=== PATIENT | male | born 1935 | race Caucasian/White ===

== ENCOUNTER → 2016-11-20 | Outpatient (CLI) | payer BC ==
[~2016-11-20] MED LIST: ALBU2.5V3 NEB; ASPI325T32 PO; ASPI325T4 PO; BUDE6HFA INHALATION; DIAZ-90 PO; FINA5TAB4 PO; HYDR-906 PO; PANT40TA4 PO; PRA20 PO; TIOT18CA INHALATION; TRAM50TA2 PO
== END | disposition home or self-care (01) ==
LOC: HKI 09:21
PROVIDERS: ATTEND Orthopaedic Surgery
DX: Z01.818 Encounter for other preprocedural examination (principal); M16.12 Unilateral primary osteoarthritis, left hip; E78.5 Hyperlipidemia, unspecified; J44.9 Chronic obstructive pulmonary disease, unspecified
CPT/HCPCS: 87081; G0463

== ENCOUNTER 2016-12-01 05:35 | Inpatient (IN) | payer BC ==
[2016-11-30 11:41] VITALS: BMI 23.6
[~2016-12-01] VITALS: Ht 172.7 cm; Wt 72.5 kg
[2016-12-01] VITALS (21 sets, daily range): BP systolic 73–124; BP diastolic 42–89; PULSE 62–90; RESP 10–19; Ht 172.7 cm; Wt 72.5 kg
[2016-12-01] MEDS ORDERED: PREGABALIN 100 MG CAP ONE (06:07)
[2016-12-01] MEDS ORDERED: PRA20 PO (06:54)
[2016-12-01] MEDS ORDERED: SODIUM CL BACTERIOSTATIC 30 ML INJ ONE (06:54)
[2016-12-01] MEDS ORDERED: DIAZ-90 PO (06:54)
[2016-12-01] MEDS ORDERED: ASPI325T4 PO (06:54)
[2016-12-01] MEDS ORDERED: VANCOMYCIN 1 GM INJ ONE (06:54)
[2016-12-01] MEDS ORDERED: ALBU2.5V3 NEB (06:54)
[2016-12-01] MEDS ORDERED: TIOT18CA INHALATION (06:54)
[2016-12-01] MEDS ORDERED: FINA5TAB4 PO (06:54)
[2016-12-01] MEDS ORDERED: BUDE6HFA INHALATION (06:54)
[2016-12-01] MEDS ORDERED: POLYMYXIN B 500000 UNIT INJ ONE (06:54)
[2016-12-01] MEDS ORDERED: PAIN COCKTAIL-CEFUROXIME IRR SCH ×7 (07:00)
[2016-12-01] MEDS ORDERED: TRANEXAMIC ACID IV ONE (07:00)
[2016-12-01] MEDS ORDERED: CEFAZOLIN 2GM/50 ML (PMX) 50 ML X1 BEFORE INCISION IVPB ONE (07:00)
[2016-12-01] MEDS: LACTATED RINGER'S 1,000 ML IV SCH ×4 (07:00→18:40)
[2016-12-01] MEDS ORDERED: SOD CHLORIDE 0.9% IV ONE (07:00)
[2016-12-01] MEDS ORDERED: traMADOL 50 MG TAB X 1 DOSE PO ONE (07:00)
[2016-12-01] MEDS ORDERED: oxyCODONE (CR) 10 MG TAB [oxyCONTIN] X1 DOSE PO ONE (07:00)
[2016-12-01] MEDS ORDERED: EXPAREL NOTE (BUPIVICAINE LIPOSOMAL) XX SCH (07:00)
[2016-12-01] MEDS ORDERED: CELECOXIB 400 MG PO X1 DOSE PO ONE (07:00)
[2016-12-01] MEDS ORDERED: NEOSTIGMINE 3 MG/3 ML SYRINGE ONE (07:05)
[2016-12-01] MEDS ORDERED: GLYCOPYRROLATE 1 MG INJ ONE (07:05)
[2016-12-01] MEDS ORDERED: ROCURONIUM 50 MG INJ ONE (07:05)
[2016-12-01] MEDS ORDERED: PROPOFOL 100 ML ONE (07:05)
[2016-12-01] MEDS ORDERED: CEFAZOLIN 1 GM INJ ONE (07:05)
[2016-12-01] MEDS ORDERED: ETOMIDATE 20 MG INJ ONE (07:05)
[2016-12-01] MEDS ORDERED: LIDOCAINE 100 MG SYRINGE ONE (07:05)
[2016-12-01] MEDS ORDERED: ONDANSETRON 4 MG INJ ONE (07:06)
[2016-12-01] MEDS ORDERED: DEXAMETHASONE 4 MG/ML 1 ML INJ ONE (07:06)
[2016-12-01] MEDS ORDERED: FENTAnyl 50 MCG/ML VIAL ONE (07:06)
[2016-12-01] MEDS ORDERED: MIDAZOLAM 1 MG/ML 2 ML INJ ONE (07:06)
--- NOTE | 2016-12-01 07:23 | HPN ---
Date/Time of Note Date/Time of Note DATE: 12/01/16 TIME: 07:22 Interval H&P Admission Note Pt. seen H&P reviewed: No system changes No change from H&P on 11/27/16 from LISA Lester MD Dec 01, 2016 07:22
[2016-12-01] MEDS ORDERED: TRANEXAMIC ACID IVPB SCH (08:00)
[2016-12-01] MEDS ORDERED: SOD CHLORIDE 0.9% IVPB SCH (08:00)
[2016-12-01] MEDS ORDERED: MIDAZOLAM 1 MG/ML 2 ML INJ IV PRN (08:30)
[2016-12-01] MEDS ORDERED: MEPERIDINE 25 MG INJ IV PRN (08:30)
[2016-12-01] MEDS ORDERED: LABETALOL HCL 20MG INJ IV PRN (08:30)
[2016-12-01] MEDS ORDERED: HYDROmorphONE (0.2 MG/ML) 10ML SYG IV PRN ×3 (08:30)
[2016-12-01] MEDS ORDERED: ONDANSETRON 4 MG INJ IV PRN ×2 (08:30→13:00)
[2016-12-01] MEDS ORDERED: EPHEDrine SULFATE 50 MG/5 ML SYG IV PRN (08:30)
[2016-12-01] MEDS ORDERED: DIPHENHYDRAMINE 50 MG INJ IV PRN (08:30)
[2016-12-01] MEDS ORDERED: TRIMETHOBENZAMIDE 100 MG/ML VIAL IM PRN (08:30)
[2016-12-01] MEDS ORDERED: FENTAnyl 50 MCG/ML VIAL IV PRN ×3 (08:30)
[2016-12-01] MEDS ORDERED: hydrALAzine 20 MG INJ IV PRN (08:30)
[2016-12-01] MEDS ORDERED: BACITRACIN 50000 UNITS INJ IRR ONE (08:40)
[2016-12-01] MEDS ORDERED: ALBUMIN HUMAN 5% 250 ML ONE (09:22)
[2016-12-01] MEDS ORDERED: NA PHOSPHATE/BIPHOS 133 ML ENEMA PR PRN (10:30)
[2016-12-01] MEDS ORDERED: NACL 0.9% 3 ML SYG IV SCH (10:30)
[2016-12-01] MEDS ORDERED: BISACODYL 10 MG SUPP PR PRN (10:30)
[2016-12-01] MEDS ORDERED: MAGNESIUM HYDROXIDE 30ML CUP PO PRN (10:30)
[2016-12-01] MEDS ORDERED: ASPIRIN (EC) 325 MG TAB PO ONE (10:30)
[2016-12-01] MEDS ORDERED: ALBUTEROL 0.083% (NEB) 2.5 MG/3 ML AMP NEB PRN (10:30)
--- NOTE | 2016-12-01 10:47 | OPPN ---
Date/Time of Note Date/Time of Note DATE: 12/01/16 TIME: 10:46 Operative/Procedure Note Dictation # [id number] Pre-Operative Diagnosis Left Hip OA Post-Operative Diagnosis Same Procedure Left Anterior NORMAN Surgeon: LISA SAWYER MD Doughnut Machine Operator: DIMAS WELSH PA-C Anesthesiologist: Pasha Roque M.D. Findings Severe OA Blood Usage/Administration None Implants/Grafts Depuy NORMAN Estimated blood loss: 250 - 300 ml's Drains Hemovac x 1 Specimens Femoral Head Complications: None Anesthesia type: spinal LISA SAWYER MD Dec 01, 2016 10:47
--- NOTE | 2016-12-01 10:47 | PN ---
Date/Time of Note Date/Time of Note DATE: 12/01/16 TIME: 10:45 Assessment/Plan Lines/Catheters IV Catheter Type (from Nrsg): Peripheral IV Assessment/Plan Assessment/Plan Stable in PACU s/p left anterior NORMAN -cont abx -pain meds prn -ASA/SCDs for DVT prophylaxis -OOB with PT this afternoon -monitor drain -check AM labs -d/c palmer in AM XR of the left hip is pending at this time Subjective 24 Hr Interval Summary Stable in PACU. Denies significant pain. Moving all extremities. Exam/Review of Systems Vital Signs Vitals Vital Signs Date Time Temp Pulse Resp B/P Pulse Ox O2 Delivery O2 Flow Rate FiO2 12/01/16 10:38 97.8 12/01/16 06:02 86 16 119/89 98 Room Air Exam Free Text/Dictation Dressing dry Incision clean, dry, and intact without redness or drainage Thigh soft 5/5 Quadriceps, Tibialis Anterior, EHL, Gastroc, Soleus, Peroneals Normal sensation Palpable DT/PT, CR <2 sec No distal edema DIMAS WELSH PA-C Dec 01, 2016 10:47
[2016-12-01 11:02] LABS: ADD UMIC YES; URINE BILIRUBIN (Dip) NEGATIVE (NEGATIVE); URINE BLOOD (Dip) TRACE (NEGATIVE); URINE COLOR LT. YELLOW (YELLOW); URINE GLUCOSE (Dip) NEGATIVE (NEGATIVE); URINE KETONES (Dip) 15 (NEGATIVE); URINE LEUKOCYTE ESTERASE (Dip) NEGATIVE (NEGATIVE); URINE NITRITE (Dip) NEGATIVE (NEGATIVE); URINE TOTAL PROTEIN (Dip) NEGATIVE (NEGATIVE); URINE UROBILINOGEN (Dip) 0.2 E.U./dL (0.1-1.0)
[2016-12-01] MEDS: ACETAMINOPHEN 1000MG/100ML IV 100 ML IVPB SCH ×3 (11:06→23:53)
[2016-12-01] MEDS: traMADol 50 MG TAB PO SCH ×2 (11:06→18:14)
[2016-12-01] MEDS: CEFAZOLIN 2 GM/50 ML (PMX) 50 ML IVPB SCH ×2 (11:07→18:40)
[2016-12-01 11:25] LABS: SQUAMOUS EPITHELIAL CELL,UR OCCASIONAL
[2016-12-01 11:28] LABS: HEMATOCRIT 27.5 % (42.0-52.0); HEMOGLOBIN 9.4 g/dl (14.0-18.0)
[2016-12-01 11:31] LABS: POTASSIUM 4.3 mmol/L (3.5-5.1)
[2016-12-01 11:35] LABS: CALCIUM 8.2 mg/dl (8.4-10.2); CREATININE 0.78 mg/dl (0.61-1.24)
--- NOTE | 2016-12-01 11:57 | RADRPT ---
PROCEDURE: Pelvis x-ray CLINICAL INDICATION: Postoperative study for total left hip arthroplasty. TECHNIQUE: Single AP view of the pelvis performed. COMPARISON: AP pelvis for surgical planning to 03/2017. FINDINGS: Interval placement of a total left hip arthroplasty with subcutaneous emphysema noted over the left hip. There are degenerative changes of the lower lumbar spine and lumbosacral junction. Right femu r is anatomically aligned in the right acetabulum. There may be slight narrowing of the joint space . There is a Yañez catheter projecting in the midline of the pelvis. The innominate bone is intact . There is a rounded radiodensity projecting to the left ilium which is likely an artifact or mater ial within the descending colon as it is not seen on the prior study. IMPRESSION: 1. Status post total left hip arthroplasty. The femoral and acetabular components are anatomically aligned with no evidence of loosening. Subcutaneous emphysema and a drainage tube are noted in the area of the left hip for recent surgery. 2. Osteoarthritis of the lower lumbar spine. RPTAT:AAJJ Physician Toro Date Time Electronically viewed and signed by Physician Toro on 12/01/2016 11:57 JM/
[2016-12-01] MEDS: TIOTROPIUM 18 MCG CAPSULE INHA DEV INH SCH (12:00)
--- NOTE | 2016-12-01 12:00 | RADRPT ---
PROCEDURE: XR Left Hip. CLINICAL INDICATION: Left hip replacement. TECHNIQUE: A total of 9 fluoroscopic images are obtained in surgery. COMPARISON: Left hip 11/30/2016. FINDINGS: AP view of the lower pelvis demonstrates flattening and sclerosis of the left femoral head with narr owing of the joint space. The right hip joint may be slightly narrowed. There is a small catheter in the midline of the pelvis. Subsequent images demonstrate placement of the acetabular component of the left hip prosthesis and r emoval of the left femoral head. Subsequent placement of the femoral component of the prosthesis is noted and appears anatomically aligned with the acetabular component. IMPRESSION: 1. Digital radiographs obtained in surgery demonstrating interval placement of a total left hip art hroplasty. The bones appear anatomically aligned on the final radiograph. RPTAT:AAJJ Physician Toro Date Time Electronically viewed and signed by Physician Toro on 12/01/2016 11:59 TIMI/
--- NOTE | 2016-12-01 12:01 | RADRPT ---
PROCEDURE: XR Left Hip. CLINICAL INDICATION: Status post total left hip arthroplasty. TECHNIQUE: AP and frog lateral views of the left hip were performed. COMPARISON: AP view of the lower pelvis 12/01/2016 0932 hours. FINDINGS: Status post placement of a total left hip arthroplasty with the drainage catheter noted lateral to t he left acetabulum. Subcutaneous emphysema is noted related to surgery. IMPRESSION: 1. Status post total left hip arthroplasty with interval placement of a drainage catheter along the lateral side of the left hip. Subcutaneous emphysema related to recent surgery. RPTAT:AAJJ Physician Toro Date Time Electronically viewed and signed by Physician Toro on 12/01/2016 12:00 TIMI/
--- NOTE | 2016-12-01 12:28 | PREOPHP ---
DATE OF ADMISSION: 12/01/2016 Dr. Dilip Hebert dictating for Dr. Esa Addison CHIEF COMPLAINT: The patient is an 81-year-old male scheduled to undergo total left hip replacement with Dr. Addison at [facility] on 12/01/2016. HISTORY OF PRESENT ILLNESS: The patient has a history of progressively increasing worsening hip pain with limitation of range of motion to the point now it is interfering with the quality of his life. He is willing to undergo the procedure. PAST MEDICAL HISTORY: Positive for: 1. COPD. 2. Hypercholesterolemia. 3. BPH. 4. History of degenerative joint disease of the wrist, hands and hips. 5. Status post cataract and intraocular lens implant in 2016. 6. Sinus bradycardia. MEDICATIONS: 1. Albuterol sulfate as needed. 2. Spiriva 18 mcg 1 capsule daily. 3. Symbicort 160/4.5 once daily. 4. Aspirin low dose. 5. Pravastatin 10 mg daily. 6. Finasteride 5 mg daily. 7. Valium 5 mg p.o. at bedtime p.r.n. for insomnia. FAMILY HISTORY: Father of a heart attack in his 40s. Sister undergoing valve surgery in h er 70s. Otherwise, unremarkable. REVIEW OF SYSTEMS: Negative. PAST SURGICAL HISTORY: Chest tube insertion following a fall on the right side in 2003 and a tonsil lectomy as a child. SOCIAL HISTORY: The patient is , has 1 or 2 martinis a day. Was a cigarette smoker of 2 to 3 packs a day for 30 to 40 years, quit in 2013. Occupation: He is an agent. PHYSICAL EXAMINATION: GENERAL: This is a very pleasant elderly white male in no distress. VITAL SIGNS: Blood pressure is 121/73, pulse is 80, respirations 16, temperature is 98.7. Weight is 158, height is 5 feet 6 inches. SKIN: Warm and dry. Normal color and turgor. HEAD AND NECK: Normocephalic, atraumatic. The sclerae is not icteric. The conjunctivae are pink and hydrated. Extraocular muscles are full. The neck is supple. LUNGS: Clear. HEART: S1, S2, regular rate and rhythm without murmur, rub or gallop. ABDOMEN: Soft, nontender, no organomegaly, no masses. EXTREMITIES: There is no clubbing, cyanosis or edema with decreased range of motion at the left hip . NEUROLOGICAL: Alert, oriented, nonfocal exam. LABORATORY: CBC: White count is 9900, hemoglobin is 12.4, hematocrit 37.3. Platelet count is 242,0 00. Glucose 130, BUN 23, creatinine 1.0, sodium 140, potassium 4.4, chloride 98, CO2 is 25, calcium is 9.5, protein is 7.1, albumin is 4.5, bilirubin 0.5, alkaline phos is 67, AST is 22, ALT is 23. Ur inalysis is specific gravity 1.028, pH 5.5, yellow, clear; negative for WBC, protein, glucose, keton es, occult blood, bilirubin, nitrites. PT/INR is 1.0, protime 10.4. PTT is 28, sed rate is 21. EKG shows a normal sinus rhythm. There is some left axis deviation. There are no acute ST-T wave ab normalities noted. Chest x-ray shows calcification of the thoracic aorta with mild hyperinflation, otherwise unremarkable. ASSESSMENT: Degenerative joint disease, left hip. PLAN: There are no contraindications with this patient proceeding with the surgery as scheduled. Jalen conroy needs no further evaluation or workup in my opinion. He understands the inherent dangers in all s urgeries including, but not limited to preoperative, intraoperative, postoperative infection, acute renal failure, myocardial infarction, stroke, respiratory failure requiring prolonged intubation whi ch may lead to other things such as tracheostomy and PEG placement and placement in facility. The p atient wishes to proceed with the surgery as scheduled. Dictated By: ESA KRAUS/NTS Conf#: [id number] DID#: [id number]
--- NOTE | 2016-12-01 12:56 | OPR ---
DATE OF OPERATION: 12/01/2016 PREOPERATIVE DIAGNOSIS: Left hip osteoarthritis. POSTOPERATIVE DIAGNOSIS: Left hip osteoarthritis. OPERATION PERFORMED: Left anterior total hip arthroplasty. SURGEON: Lisa Addsion MD COMPUTER VIDEO GAME DESIGNER: ROSSY Lawson COMPONENTS USED: DePuy size 54 mm Gription Garibaldi cup, 54/36 neutral AltrX polyethylene liner, si ze 8 standard ACTIS stem, 36+ 8.5 ceramic head. ANESTHESIA: Spinal plus general endotracheal intubation plus periarticular injection. ANESTHESIOLOGIST: Dr. Roque. ESTIMATED BLOOD LOSS: 300 mL. INTRAVENOUS FLUIDS: 2500 mL crystalloid. SPECIMENS: Femoral head. DRAINS: Hemovac x1. COMPLICATIONS: None. DISPOSITION: The patient tolerated the procedure well and was taken to the recovery room in stable condition. INDICATIONS: The patient is an 81-year-old gentleman who has had progressive worsening pain in the left hip with radiographic evidence of severe osteoarthritis. He has failed nonsurgical means of tr eatment to control his pain including activity modifications, pain medications and ambulatory assist devices. Despite these measures, he has had worsening pain and I felt he would benefit from a tota l hip arthroplasty through an anterior approach. The risks, benefits, and alternatives of the procedure were explained in detail to the patient. I ex plained the risks of the surgery to include, but not be limited to: bleeding and possible need for b lood transfusion; infection; pain; stiffness; neurovascular injury with possible numbness, weakness, and/or paralysis anywhere from the hip down to the toes; fracture; instability; dislocation; leg le ngth inequality; wear and/or loosening of the prosthesis and possible need for future revision; bloo d clots; pulmonary embolism; and anesthetic complications such as heart attack, stroke, GI bleed, pn eumonia, and/or . Ample time was allowed for the patient to ask questions, all of which were ad dressed and answered. The patient understood the risks involved and wished to proceed. Informed cons ent was signed prior to the procedure. PROCEDURE: The patient's left hip was initialed with a marking pen in the preoperative area to ident jose the correct operative site. The patient was brought to the operating room and transferred from [facility] to the [facility] where a spinal anesthetic was administered. The patient was the n anesthetized and intubated. A Yañez catheter was placed. Both feet were placed into well-padded berry ots, which were then placed into the leg holders of the traction booms. A timeout was performed to c onfirm that the left side was the correct operative site. The patient was given 2 g of intravenous A ncef within one hour prior to the procedure. The operative hip was prepped and draped in the usual s terile fashion. A 10 cm oblique incision was made over the anterior aspect of the hip and carried down through subcu taneous tissue and fat with sharp dissection. The tensor fascia ricardo was incised along the length of the wound. The tensor fascia muscle was retracted laterally and the sartorius medially. The anterio r circumflex vessels were identified and tied off with 2-0 silk suture and coagulated with the Ciashopu e Link gis technician. The rectus femoris was elevated off the anterior capsule and an anterior capsulec delfina performed. A femoral neck osteotomy was made and the head removed from the acetabulum. The acet abulum was denuded of cartilage circumferentially, as was the femoral head. Retractors were placed a round the acetabulum. The remnants of the labrum and ligamentum teres were excised. I reamed the tracy tabulum to the medial wall and then went into an anatomic position and increased the reamer size in 2 mm increments until I got a good bite and was down to bleeding subchondral bone. The Garibaldi cup was opened and impacted into the acetabulum and sat flush circumferentially, gettin g a good bite. C-arm imaging showed it had about 40 to 45 degrees of abduction and 20 degrees of ant eversion. The real liner was opened and impacted into the acetabulum and sat flush circumferentiall y. Attention was turned towards the femur. The operative leg was carefully lowered to the floor with the leg adducted. The foot was then job service consultant ally rotated to approximately 110 degrees. A posteromedial release was performed to optimize exposur e. The femoral hook was placed underneath the proximal femur and the hydraulic lift was then used to elevate the femur up out of the wound. The drain cutter osteotome was used to remove the remaining overhanging greater trochanter. The femur was then broached, going up in one size increments until it sat flush with the neck cut and a stable fit was achieved. The trial neck and head were assembled and reduced into the acetabulum. Fluoroscopic imaging showed the components to be in good position and the leg lengths and offsets to be equal. At this point, the trial was dislocated and the trial broach removed. The canal was irrigated and dr pedroza. The real stem was opened and impacted into the femur. The trunnion was irrigated and dried, and the real femoral head was impacted onto the trunnion, and reduced into the acetabulum. The soft tissues were infiltrated with a mixture of 150 mg of 0.5% Bupivacaine, 8 mg of Duramorph, 3 00 mcg of epinephrine, 30 mg of Toradol, 100 mcg of clonidine, 750 mg of cefuroxime and 86 mL of nor mal saline, followed by an injection of 266 mg of liposomal Bupivacaine. At this point the hip was i rrigated with a mixture of betadine/saline and then antibiotic saline with pulsatile lavage. A Hemov ac drain was placed in the deep portion of the wound and brought out the anterolateral thigh. There was good hemostasis. The tensor fascia ricardo was repaired with a running #1 Vicryl. The deep fat laye r was irrigated and closed with 2-0 Stratafix and the subcutaneous layer closed with 3-0 Stratafix a nd the skin was sealed with Prineo Dermabond. The drain was secured with 3-0 nylon. The sponge and needle counts were correct at the end of the case. The wound was covered with an occl usive dressing. The patient was awakened, extubated, and taken to the recovery room in stable condit ion. Dictated By: LISA KRAUS/REYNALDO Conf#: [id number] DID#: [id number]
[2016-12-01] MEDS ORDERED: HYDROmorphONE 1 MG/ML SYG IV PRN (13:00)
[2016-12-01] MEDS ORDERED: oxyCODONE 5 MG TAB PO PRN (13:00)
[2016-12-01] MEDS ORDERED: DIPHENHYDRAMINE 25 MG CAP PO PRN (13:00)
--- NOTE | 2016-12-01 14:38 | CONS ---
DATE OF ADMISSION: 12/01/2016 DATE OF CONSULTATION: 12/01/2016 REQUESTING PHYSICIAN: Esa Addison MD REASON FOR CONSULTATION: Medical management postoperatively status post left hip surgery. HISTORY OF PRESENT ILLNESS: This is a very pleasant 81-year-old gentleman with past medical history of COPD, insomnia, BPH, and dyslipidemia, whom has been complaining of having left hip pain and had been having difficulty with ambulation. The patient has been having progressively worsening pain i n his left hip with radiographic evidence of severe osteoarthritis. He has failed nonsurgical means of treatment to control pain including activity modification, pain medication, ambulatory assist de vices. Despite the measures, the patient has had worsening of the pain and was seen and evaluated b y orthopedic surgeon and it was felt that patient would benefit from total hip arthroplasty. After discussing the risks and benefits of the surgery, the patient was admitted to [facility] 12/01/2016 for left total hip arthroplasty. After signing consent, the patient was taken to OR and under spinal plus general endotracheal intubation plus periarticular injection, the patient h ad a left anterior total hip arthroplasty with estimated blood loss of 300 mL without any complicati on. The patient was taken to recovery room in stable condition. Medical team was consulted for fur ther evaluation. At this time, the patient is awake, alert, oriented. He denies any chest pain, sh ortness of breath, nausea, vomiting, diarrhea. No headache, dizziness, lightheadedness. No change in visual acuity, diplopia, photophobia. No abdominal pain. No neck pain. No restricted range of motion in his upper extremities. Denies having any discomfort at this time. The other 12 review of systems has been found to be negative. PAST MEDICAL/SURGICAL HISTORY: As above per HPI. Status post right pneumothorax and chest tube teressa cement 12 years ago. MEDICATIONS: 1. Albuterol sulfate. 2. Aspirin. 3. Symbicort. 4. Valium. 5. Finasteride. 6. Pravastatin. 7. Spiriva. ALLERGIES: NO KNOWN DRUG ALLERGIES. FAMILY HISTORY: Noncontributory secondary to advanced age. SOCIAL HISTORY: History of smoking x50 years. He quit 12 years ago. REVIEW OF SYSTEMS: As above per HPI, otherwise 12 review of systems has been found to be negative. PHYSICAL EXAMINATION: VITAL SIGNS: Temperature 97.8, pulse 74, respirations 14, blood pressure 108/54, oxygen 100% in elton m air. GENERAL APPEARANCE: The patient is lying in bed comfortably without any distress. He is awake, lavonne rt, oriented. The patient is able to answer my questions properly. EYES AND ENT: Conjunctivae and lids are normal. Pupils are normal. Extraocular normal. Hearing g rossly normal. Lips and gums are normal. Oral mucosa is moist. NECK: Supple. Trachea is midline. No lymphadenopathy. RESPIRATORY: Effort is normal. Clear to auscultation bilaterally. CARDIOVASCULAR: Normal S1, S2. Regular rhythm and rate. No murmur, no bruits, no edema. Peripher al pulses, radial pulses palpable. Capillary refill is normal. CHEST: Normal expansion of thorax during inspiration. GASTROINTESTINAL: Abdomen is soft, nontender, not distended. Bowel sounds present. No guarding, n o rebound. GENITOURINARY: Deferred. MUSCULOSKELETAL: Upper extremities within normal limits. There is evidence of arthritis of hands, bilateral upper extremities in the digits. The patient is status post left hip arthroplasty. Surgi palmira site is dry and clean. Full range of motion lower extremity. NEUROLOGIC: Cranial nerves II through XII are grossly intact. PSYCHIATRIC: Normal judgment and insight. Alert and oriented x3. Mood and affect is normal. LABORATORY WORK AND IMAGING: Hemoglobin 9.4, hematocrit 27.5. Sodium 139, potassium 4.3, chloride 101, bicarbonate 27, BUN 22, creatinine 0.78, glucose 143, calcium 8.2. Urinalysis: Specific gravi ty greater than 1.030, otherwise negative. ASSESSMENT AND PLAN: 1. Left hip osteoarthritis. The patient is status post left anterior total hip arthroplasty. Cont inue postsurgical care. Aspirin for deep venous thrombosis prophylaxis. Continue pain medication. Physical therapy as per orthopedic surgeon. 2. Chronic obstructive pulmonary disease. Continue Symbicort, albuterol and Spiriva. 3. Dyslipidemia. Continue statin. 4. Benign prostatic hypertrophy. Continue finasteride. 5. We will continue to monitor the patient closely. Further recommendations, management and treatm ent as per clinical course. 6. For deep venous thrombosis prophylaxis, on aspirin as per orthopedic surgeon's recommendation. Total time spent for evaluation of patient and consultation note 35 minutes. Dictated By: MARY ROGERS/NTS Conf#: [id number] [facility]#: [id number]
[2016-12-01] MEDS ORDERED: BACITRACIN 50000 UNITS INJ ONE (14:54)
[2016-12-01] MEDS ORDERED: BUPIVACAINE LIPOSOME/PF 266 MG/20 ML VIAL INFIL SCH (16:00)
[2016-12-01] MEDS ORDERED: PREGABALIN 300 MG PO X1 PO ONE (16:00)
[2016-12-01] MEDS: PANTOPRAZOLE (EC) 40 MG TAB PO SCH (18:14)
[2016-12-01] MEDS: SALMETEROL/FLUTICASONE 250/50 INHA INH SCH (21:00)
[2016-12-01] MEDS: PREGABALIN 25 MG CAP PO SCH (21:00)
[2016-12-01] MEDS: DIAZEPAM 5 MG TAB PO SCH (21:00)
[2016-12-01] MEDS: DOCUSATE SODIUM 100 MG CAP PO SCH (21:28)
[2016-12-01] MEDS: ATORVASTATIN 10 MG TAB PO SCH (21:38)
[2016-12-02] VITALS: BP 90/55; RESP 20
[2016-12-02] MEDS: CEFAZOLIN 2 GM/50 ML (PMX) 50 ML IVPB SCH (01:55)
[2016-12-02] MEDS: LACTATED RINGER'S 1,000 ML IV SCH ×6 (01:55→22:51)
[2016-12-02] MEDS: traMADol 50 MG TAB PO SCH ×5 (02:55→23:33)
[2016-12-02] MEDS: PANTOPRAZOLE (EC) 40 MG TAB PO SCH ×2 (05:01→17:27)
[2016-12-02 05:08] LABS: HEMATOCRIT 25.5 % (42.0-52.0); HEMOGLOBIN 8.8 g/dl (14.0-18.0)
[2016-12-02 05:25] VITALS: BP 116/69; PULSE 67; RESP 18
[2016-12-02 05:29] LABS: POTASSIUM 4.1 mmol/L (3.5-5.1)
[2016-12-02 05:32] LABS: CREATININE 0.76 mg/dl (0.61-1.24)
[2016-12-02 05:33] LABS: CALCIUM 8.4 mg/dl (8.4-10.2)
[2016-12-02] MEDS: ACETAMINOPHEN 1000MG/100ML IV 100 ML IVPB SCH (06:00)
[2016-12-02 07:00] VITALS: BP 116/61; RESP 20
[2016-12-02] MEDS: oxyCODONE 5 MG TAB PO PRN ×3 (07:55→16:47)
--- NOTE | 2016-12-02 08:43 | PN ---
Date/Time of Note Date/Time of Note DATE: 12/02/16 TIME: 08:41 Assessment/Plan Lines/Catheters IV Catheter Type (from Nrsg): Peripheral IV Yañez in Place (from Nrsg): Yes Assessment/Plan Assessment/Plan Stable POD #1 s/p left anterior NORMAN -d/c abx -pain meds -ASA/SCDs -drain removed -OOB with PT -check AM labs -encourage incentive spirometry -d/c planning. Possible d/c home tomorrow Subjective 24 Hr Interval Summary Doing well. No acute overnight events. Denies pain. Did PT yesterday with no adverse events. Denies f/c. VSS, afebrile. Exam/Review of Systems Vital Signs Vitals Vital Signs Date Time Temp Pulse Resp B/P Pulse Ox O2 Delivery O2 Flow Rate FiO2 12/02/16 07:00 97.9 63 20 116/61 99 12/02/16 05:25 Nasal Cannula 2.0 Intake and Output 12/01/16 12/01/16 12/02/16 15:00 23:00 07:00 Intake Total 2660 ml 950 ml 2050 ml Output Total 970 ml 1060 ml 1980 ml Balance 1690 ml -110 ml 70 ml Exam Free Text/Dictation Hemovac: 80cc Dressing dry Incision clean, dry, and intact without redness or drainage 5/5 Quadriceps, Tibialis Anterior, EHL, Gastroc, Soleus, Peroneals Normal sensation Palpable DT/PT, CR <2 sec No distal edema Results Result Diagram: 12/02/1642912/02/16429 DIMAS WELSH PA-C Dec 02, 2016 08:43
[2016-12-02] MEDS: TIOTROPIUM 18 MCG CAPSULE INHA DEV INH SCH (08:50)
[2016-12-02] MEDS: SALMETEROL/FLUTICASONE 250/50 INHA INH SCH ×2 (08:50→20:54)
[2016-12-02] MEDS: ASPIRIN (EC) 325 MG TAB PO SCH ×2 (08:51→20:44)
[2016-12-02] MEDS: PREGABALIN 25 MG CAP PO SCH ×2 (08:51→20:45)
[2016-12-02] MEDS: FINASTERIDE 5 MG TAB PO SCH (08:51)
[2016-12-02] MEDS: CELECOXIB 200 MG CAP PO SCH (08:51)
[2016-12-02] MEDS: DOCUSATE SODIUM 100 MG CAP PO SCH ×2 (08:51→20:45)
--- NOTE | 2016-12-02 10:13 | PN ---
Date/Time of Note Date/Time of Note DATE: 12/02/16 TIME: 10:10 Assessment/Plan VTE Prophylaxis VTE Prophylaxis Intervention: other Lines/Catheters IV Catheter Type (from [facility]): Peripheral IV Urinary Cath still in place: No Assessment/Plan Chief Complaint/Hosp Course ASSESSMENT AND PLAN: 1. Left hip osteoarthritis. The patient is status post left anterior total hip arthroplasty. Continue postsurgical care. Aspirin for deep venous thrombosis prophylaxis. Continue pain medication. Physical therapy as per orthopedic surgeon. 2. Chronic obstructive pulmonary disease. Continue Symbicort, albuterol and Spiriva. 3. Dyslipidemia. Continue statin. 4. Benign prostatic hypertrophy. Continue finasteride. 5. For deep venous thrombosis prophylaxis, on aspirin as per orthopedic surgeon 's recommendation. We will continue to monitor the patient closely. Further recommendations, management and treatment as per clinical course. Problems: Subjective 24 Hr Interval Summary Free Text/Dictation Patient denies any chest pain shortness of breath Denies of any left hip pain Tolerating oral intake No nausea vomiting diarrhea Exam/Review of Systems Vital Signs Vitals Vital Signs Date Time Temp Pulse Resp B/P Pulse Ox O2 Delivery O2 Flow Rate FiO2 12/02/16 07:00 97.9 63 20 116/61 99 12/02/16 05:25 Nasal Cannula 2.0 Intake and Output 12/01/16 12/01/16 12/02/16 15:00 23:00 07:00 Intake Total 2660 ml 950 ml 2050 ml Output Total 970 ml 1060 ml 1980 ml Balance 1690 ml -110 ml 70 ml Exam General: The patient is well-developed, Not in acute distress. HEENT: Atraumatic, normocephalic. The pupils are equal and round . Neck: Supple with full range of motion. Chest: Normal expansion of the thorax during inspiration Lungs: Clear to auscultation bilaterally Heart: Normal S1-S2, Regular rhythm and rate. Abdomen: Soft , nontender, nondistended , bowel sounds are present. Extremities: Left hip surgical site is dry and clean, drain has been removed, no edema no cyanosis Neurologic: Normal mental status,The patient is awake, alert and oriented . Results Result Diagram: 12/02/16 0430 12/02/16 0430 Results 24 hrs Laboratory Tests Test 12/01/16 10:29 12/01/16 10:31 12/02/16 04:30 Anion Gap 15 13 Blood Urea Nitrogen 22 H 18 Calcium Level 8.2 L 8.4 Carbon Dioxide Level 27 30 Chloride Level 101 100 Creatinine 0.78 0.76 Glucose Level 143 105 Hematocrit 27.5 L 25.5 L Hemoglobin 9.4 L 8.8 L Potassium Level 4.3 4.1 Sodium Level 139 139 Urine Bilirubin NEGATIVE Urine Clarity CLEAR Urine Color LT. YELLOW Urine Glucose NEGATIVE Urine Hemoglobin TRACE Urine Ketones 15 Urine Leukocyte Esterase NEGATIVE Urine Microscopic RBC 2-5 Urine Microscopic WBC 2-5 Urine Nitrite NEGATIVE Urine Specific [place] >=1.030 H Urine Squamous Epithelial Cells OCCASIONAL Urine Total Protein NEGATIVE Urine Urobilinogen 0.2 E.U./dL Urine pH 5.5 Medications Medications Current Medications Lactated Ringer's (Lr) 1,000 ml @ 100 mls/hr Q10H IV Last administered on 18:15; Admin Dose 100 MLS/HR; Start 12/01/16 at 07:00 Diazepam (Valium) 5 mg QHS PO ; Start 12/01/16 at 21:00 Finasteride (Proscar) 5 mg DAILY PO Last administered on 12/02/16 08:51; Admin Dose 5 MG; Start 12/02/16 at 09:00 Salmeterol Xinafoate/ Fluticasone (Advair 250/50 Diskus) 1 inh BID INH Last administered on 12/02/16 08:50; Admin Dose 1 INH; Start 12/01/16 at 21:00 Atorvastatin Calcium 5 mg 5 mg DAILY@21 PO Last administered on 12/01/16 21:38 ; Admin Dose 5 MG; Start 12/01/16 at 21:00 Lactated Ringer's (Lr) 1,000 ml @ 125 mls/hr Q8H IV Last administered on 01:55; Admin Dose 125 MLS/HR; Start 12/01/16 at 10:29 Celecoxib 200 mg 200 mg DAILY PO Last administered on 12/02/16 08:51; Admin Dose 200 MG; Start 12/02/16 at 09:00 Acetaminophen (Ofirmev 1000mg/ 100ml Iv) 100 ml @ 400 mls/hr Q6 IVPB Last administered on 12/01/16 23:53; Admin Dose 400 MLS/HR; Start 12/01/16 at 12:00; Stop 12/02/16 at 11:59 Tramadol HCl (Ultram) 50 mg Q6 PO Last administered on 12/02/16 02:55; Admin Dose 50 MG; Start 12/01/16 at 12:00; Stop 12/04/16 at 11:59 Oxycodone HCl (Roxicodone) 5 mg Q4H PRN PO PAIN LEVEL 1-3 Last administered on 12/02/16 07:55; Admin Dose 5 MG; Start 12/01/16 at 13:00 Oxycodone HCl (Roxicodone) 10 mg Q4H PRN PO PAIN LEVEL 4-7; Start 12/01/16 at 13 :00 Hydromorphone HCl (Dilaudid) 1 mg Q3H PRN IV PAIN LEVEL 8-10; Start 12/01/16 at 13:00 Ondansetron HCl (Zofran Inj) 4 mg Q6H PRN IV NAUSEA AND/OR VOMITING; Start 12/01 at 13:00 Bisacodyl (Dulcolax Supp) 10 mg Q12H PRN [place] CONSTIPATION; Start 12/01/16 at 10: 30 Magnesium Hydroxide (Milk Of Mag) 30 ml BID PRN PO CONSTIPATION; Start 12/01/16 at 10:30 Sodium Biphosphate/ Sodium Phosphate (Fleet Enema) 133 ml DAILY PRN [place] CONSTIPATION; Start 12/01/16 at 10:30 Docusate Sodium (Colace) 100 mg BID PO Last administered on 12/02/16 08:51; Admin Dose 100 MG; Start 12/01/16 at 21:00 Diphenhydramine HCl (Benadryl) 25 mg Q6H PRN PO PRURITUS; Start 12/01/16 at 13: 00 Aspirin (Ecotrin) 325 mg BID PO Last administered on 12/02/16 08:51; Admin Dose 325 MG; Start 12/02/16 at 09:00 Pregabalin (Lyrica) 50 mg BID PO Last administered on 12/02/16 08:51; Admin Dose 50 MG; Start 12/01/16 at 21:00 Pantoprazole (Protonix Tab) 40 mg BID@,18 PO Last administered on 12/02/16 05 :01; Admin Dose 40 MG; Start 12/01/16 at 18:00 Tiotropium [place] (Spiriva) 1 inh DAILY INH Last administered on 12/02/16t 08: 50; Admin Dose 1 INH; Start 12/01/16 at 12:00 MARY PEPEPR MD Dec 02, 2016 10:13
[2016-12-02 19:34] LABS: ADD UMIC NO; URINE BILIRUBIN (Dip) NEGATIVE (NEGATIVE); URINE BLOOD (Dip) NEGATIVE (NEGATIVE); URINE COLOR LT. YELLOW (YELLOW); URINE GLUCOSE (Dip) NEGATIVE (NEGATIVE); URINE KETONES (Dip) NEGATIVE (NEGATIVE); URINE LEUKOCYTE ESTERASE (Dip) NEGATIVE (NEGATIVE); URINE NITRITE (Dip) NEGATIVE (NEGATIVE); URINE TOTAL PROTEIN (Dip) NEGATIVE (NEGATIVE); URINE UROBILINOGEN (Dip) 0.2 E.U./dL (0.1-1.0)
[2016-12-02 19:51] VITALS: BP 110/58; RESP 22
[2016-12-02] MEDS: ATORVASTATIN 10 MG TAB PO SCH (20:45)
[2016-12-02] MEDS: DIAZEPAM 5 MG TAB PO SCH (21:00)
[2016-12-03] MEDS: LACTATED RINGER'S 1,000 ML IV SCH ×5 (02:29→19:00)
[2016-12-03] MEDS: traMADol 50 MG TAB PO SCH ×3 (05:16→17:53)
[2016-12-03] MEDS: PANTOPRAZOLE (EC) 40 MG TAB PO SCH ×2 (05:16→17:53)
[2016-12-03 05:19] LABS: HEMATOCRIT 28.8 % (42.0-52.0); HEMOGLOBIN 9.9 g/dl (14.0-18.0)
[2016-12-03 05:30] LABS: IRON 14 ug/dl (35-150)
[2016-12-03 05:38] LABS: CREATININE 0.84 mg/dl (0.61-1.24)
[2016-12-03 05:39] LABS: CALCIUM 8.2 mg/dl (8.4-10.2)
[2016-12-03 05:43] LABS: TOTAL IRON BINDING CAPACITY 209 ug/dl (241-421)
[2016-12-03 07:31] VITALS: BP 122/66; RESP 19
[2016-12-03] MEDS: TIOTROPIUM 18 MCG CAPSULE INHA DEV INH SCH (09:25)
[2016-12-03] MEDS: ASPIRIN (EC) 325 MG TAB PO SCH ×2 (09:25→21:06)
[2016-12-03] MEDS: SALMETEROL/FLUTICASONE 250/50 INHA INH SCH ×2 (09:25→21:00)
[2016-12-03] MEDS: CELECOXIB 200 MG CAP PO SCH (09:26)
[2016-12-03] MEDS: DOCUSATE SODIUM 100 MG CAP PO SCH ×2 (09:26→21:05)
[2016-12-03] MEDS: PREGABALIN 25 MG CAP PO SCH ×2 (09:26→21:06)
[2016-12-03] MEDS: FINASTERIDE 5 MG TAB PO SCH (09:26)
--- NOTE | 2016-12-03 10:29 | PN ---
Date/Time of Note Date/Time of Note DATE: 12/03/16 TIME: 10:27 Assessment/Plan Lines/Catheters IV Catheter Type (from Nrsg): Saline Lock Yañez in Place (from Nrsg): No Assessment/Plan Assessment/Plan Stable POD # 2, s/p left anterior NORMAN -pain meds -ASA/SCDs -OOB with PT -dressing changed -check AM labs -encourage incentive spirometry -d/c planning. Will likely go home tomorrow Subjective 24 Hr Interval Summary Doing well. No acute overnight events. H&H improved from yesterday. Denies significant pain. Progressing with PT. Plan to d/c home tomorrow. Exam/Review of Systems Vital Signs Vitals Vital Signs Date Time Temp Pulse Resp B/P Pulse Ox O2 Delivery O2 Flow Rate FiO2 12/03/16 07:31 98.0 89 19 122/66 98 12/02/16 20:15 2.0 12/02/16 05:25 Nasal Cannula Intake and Output 12/02/16 12/02/16 12/03/16 14:59 22:59 06:59 Intake Total 625 ml 980 ml 800 ml Output Total 300 ml 1350 ml Balance 625 ml 680 ml -550 ml Exam Free Text/Dictation Dressing dry Incision clean, dry, and intact without redness or drainage 5/5 Quadriceps, Tibialis Anterior, EHL, Gastroc, Soleus, Peroneals Normal sensation Palpable DT/PT, CR <2 sec No distal edema Results Result Diagram: 12/03/16 0435 12/03/16 0435 DIMAS WELSH PA-C Dec 03, 2016 10:29
--- NOTE | 2016-12-03 10:38 | PDOCDIS ---
Discharge Instructions DIAGNOSIS Discharge Diagnosis: s/p left anterior NORMAN CONDITION Patient Condition: Good HOME CARE INSTRUCTIONS: Diet Instructions: Regular ACTIVITY: Activity Restrictions: Slowly Increase Activity Rest between Activity Avoid heavy lifting Do not operate Machinery Do not operate Power Tool Avoid Heavy Housework Keep Limb Elevated Bathing Restrictions: Shower FOLLOW UP/APPOINTMENTS Appointments follow up with Dr. Addison in the office on 12/11/16 OTHER ORDERS: Other Orders: S/P Anterior NORMAN Physical Therapy: Three times per week at home x 2 weeks Daily in Rehab/SNF (if applicable) WB STATUS: WBAT Strengthening exercises for both upper and un-operated lower extremities. 1. Gait training with front wheeled walker 2. Wide base gait, no pivot turns. 3. Abductor strengthening. 4. Quadriceps and hamstring strengthening. 5. May switch to cane in contra lateral hand 6 weeks after surgery. 6. Physical Therapy can open case if nursing is not available. 7. Ice Packs while at rest to surgical wound for 20 minutes, 3 times/day. 8. Patient requires mobile SCDs to reduce risk of developing DVT following NORMAN. Patient will use the mobile SCDs for 30 days postoperatively. Hip Precautions: No posterior hip precautions. Bathing assistance by home health aide twice weekly if Medicare patient. Occupational Therapy: Evaluation for assistive devices and ADL training. Wound Care: Keep incision dry & covered with Tegaderm until first visit with Dr. Addison Anticoagulation Orders: Enteric Coated Aspirin 325 mg po bid x 6 weeks from date of surgery Follow-up:Call for an appointment with Dr. Addison in 1 week after discharged from hospital at DME Orders: NICHOLE, 3-in-1 Commode, Mobile SCDs DIMAS WELSH PA-C Dec 03, 2016 10:38
[2016-12-03] MEDS ORDERED: ASPI325T32 PO (10:40)
[2016-12-03] MEDS ORDERED: HYDR-906 PO (10:40)
[2016-12-03] MEDS ORDERED: PANT40TA4 PO (10:40)
[2016-12-03] MEDS ORDERED: TRAM50TA2 PO (10:40)
--- NOTE | 2016-12-03 14:38 | PN ---
Date/Time of Note Date/Time of Note DATE: 12/03/16 TIME: 14:33 Assessment/Plan VTE Prophylaxis VTE Prophylaxis Intervention: other Lines/Catheters IV C[facility] Type [facility]from [facility] Saline Lock Urinary Cath still in place: No Assessment/Plan Chief Complaint/Hosp Course ASSESSMENT AND PLAN: 1. Left hip osteoarthritis. The patient is status post left anterior total hip arthroplasty. Continue postsurgical care. Aspirin for deep venous thrombosis prophylaxis. Continue pain medication. Physical therapy as per orthopedic surgeon. 2. Chronic obstructive pulmonary disease. Continue Symbicort, albuterol and Spiriva. 3. Dyslipidemia. Continue statin. 4. Benign prostatic hypertrophy. Continue finasteride. 5. Anemia. Stable 6. For deep venous thrombosis prophylaxis, on aspirin as per orthopedic surgeon 's recommendation. We will continue to monitor the patient closely. Further recommendations, management and treatment as per clinical course. Problems: Subjective 24 Hr Interval Summary Free Text/Dictation Patient denies any chest pain or shortness of breath Able to ambulate with moderate assist Tolerating oral intake Exam/Review of Systems Vital Signs Vitals Vital Signs Date Time Temp Pulse Resp B/P Pulse Ox O2 Delivery O2 Flow Rate FiO2 12/03/16 07:31 98.0 89 19 122/66 98 12/02/16 20:15 2.0 12/02/16 05:25 Nasal Cannula Intake and Output 12/02/16 12/02/16 12/03/16 15:00 23:00 07:00 Intake Total 625 ml 980 ml 800 ml Output Total 300 ml 1350 ml Balance 625 ml 680 ml -550 ml Exam General: The patient is well-developed, Not in acute distress. HEENT: Atraumatic, normocephalic. The pupils are equal and round . Neck: Supple with full range of motion. Chest: Normal expansion of the thorax during inspiration Lungs: Clear to auscultation bilaterally Heart: Normal S1-S2, Regular rhythm and rate. Abdomen: Soft , nontender, nondistended , bowel sounds are present. Extremities: Left hip surgical site is dry and clean, no edema no cyanosis Neurologic: Normal mental status,The patient is awake, alert and oriented . Results Result Diagram: 12/03/16 0435 12/03/16 0435 Results 24 hrs Laboratory Tests Test 12/03/16 04:35 Anion Gap 12 Blood Urea Nitrogen 15 Calcium Level 8.2 L Carbon Dioxide Level 32 H Chloride Level 97 Creatinine 0.84 Ferritin 112.0 Glucose Level 96 Hematocrit 28.8 L Hemoglobin 9.9 L Iron Level 14 L Percent Iron Saturation 7 L Potassium Level 4.0 Sodium Level 137 Total Iron Binding Capacity 209 L Medications Medications Current Medications Lactated Ringer's (Lr) 1,000 ml @ 100 mls/hr Q10H IV Last administered on 18:15; Admin Dose 100 MLS/HR; Start 12/01/16 at 07:00 Diazepam (Valium) 5 mg QHS PO ; Start 12/01/16 at 21:00 Finasteride (Proscar) 5 mg DAILY PO Last administered on 12/03/16 09:26; Admin Dose 5 MG; Start 12/02/16 at 09:00 Salmeterol Xinafoate/ Fluticasone (Advair 250/50 Diskus) 1 inh BID INH Last administered on 12/03/16 09:25; Admin Dose 1 INH; Start 12/01/16 at 21:00 Atorvastatin Calcium 5 mg 5 mg DAILY@21 PO Last administered on 12/02/16 20:45 ; Admin Dose 5 MG; Start 12/01/16 at 21:00 Lactated Ringer's (Lr) 1,000 ml @ 125 mls/hr Q8H IV Last administered on 01:55; Admin Dose 125 MLS/HR; Start 12/01/16 at 10:29 Celecoxib (Celebrex) 200 mg DAILY PO Last administered on 12/03/16 09:26; Admin Dose 200 MG; Start 12/02/16 at 09:00 Tramadol HCl (Ultram) 50 mg Q6 PO Last administered on 12/03/16 12:01; Admin Dose 50 MG; Start 12/01/16 at 12:00; Stop 12/04/16 at 11:59 Oxycodone HCl (Roxicodone) 5 mg Q4H PRN PO PAIN LEVEL 1-3 Last administered on 12/02/16 16:47; Admin Dose 5 MG; Start 12/01/16 at 13:00 Oxycodone HCl (Roxicodone) 10 mg Q4H PRN PO PAIN LEVEL 4-7 Last administered on 12/02/16 20:44; Admin Dose 10 MG; Start 12/01/16 at 13:00 Hydromorphone HCl (Dilaudid) 1 mg Q3H PRN IV PAIN LEVEL 8-10; Start 12/01/16 at 13:00 Ondansetron HCl (Zofran Inj) 4 mg Q6H PRN IV NAUSEA AND/OR VOMITING; Start 12/01 at 13:00 Bisacodyl (Dulcolax Supp) 10 mg Q12H PRN [place] CONSTIPATION; Start 12/01/16 at 10: 30 Magnesium Hydroxide (Milk Of Mag) 30 ml BID PRN PO CONSTIPATION; Start 12/01/16 at 10:30 Sodium Biphosphate/ Sodium Phosphate (Fleet Enema) 133 ml DAILY PRN [place] CONSTIPATION; Start 12/01/16 at 10:30 Docusate Sodium (Colace) 100 mg BID PO Last administered on 12/03/16 09:26; Admin Dose 100 MG; Start 12/01/16 at 21:00 Diphenhydramine HCl (Benadryl) 25 mg Q6H PRN PO PRURITUS; Start 12/01/16 at 13: 00 Aspirin (Ecotrin) 325 mg BID PO Last administered on 12/03/16 09:25; Admin Dose 325 MG; Start 12/02/16 at 09:00 Pregabalin (Lyrica) 50 mg BID PO Last administered on 12/03/16 09:26; Admin Dose 50 MG; Start 12/01/16 at 21:00 Pantoprazole (Protonix Tab) 40 mg BID@06,18 PO Last administered on 12/03/16 05 :16; Admin Dose 40 MG; Start 12/01/16 at 18:00 Tiotropium [place] (Spiriva) 1 inh DAILY INH Last administered on 12/03/16 09: 25; Admin Dose 1 INH; Start 12/01/16 at 12:00 MARY PEPPER MD Dec 03, 2016 14:38
[2016-12-03] MEDS: DIAZEPAM 5 MG TAB PO SCH (21:00)
[2016-12-03] MEDS: ATORVASTATIN 10 MG TAB PO SCH (21:06)
[2016-12-03 21:46] VITALS: BP 99/58; RESP 20
[2016-12-04] MEDS: traMADol 50 MG TAB PO SCH ×2 (00:02→06:03)
[2016-12-04] MEDS: LACTATED RINGER'S 1,000 ML IV SCH ×3 (02:29→09:48)
[2016-12-04 05:20] LABS: POTASSIUM 4.1 mmol/L (3.5-5.1)
[2016-12-04 05:21] LABS: HEMATOCRIT 27.1 % (42.0-52.0); HEMOGLOBIN 8.7 g/dl (14.0-18.0)
[2016-12-04 05:22] LABS: CREATININE 0.77 mg/dl (0.61-1.24)
[2016-12-04] MEDS: PANTOPRAZOLE (EC) 40 MG TAB PO SCH (06:03)
[2016-12-04 07:00] VITALS: BP 138/69; RESP 20
--- NOTE | 2016-12-04 08:34 | PN ---
Date/Time of Note Date/Time of Note DATE: 12/04/16 TIME: 08:33 Assessment/Plan Lines/Catheters IV Catheter Type (from Nrsg): Saline Lock Yañez in Place (from Nrsg): No Assessment/Plan Assessment/Plan Stable POD #3, s/p left anterior NORMAN -pain meds -ASA/SCDs -OOB with PT -dressing changed -d/c home today -follow up in the office on 12/11/16 Subjective 24 Hr Interval Summary Doing well. No acute overnight events. Denies significant pain. Progressed nicely with PT. Would like to go home today. Exam/Review of Systems Vital Signs Vitals Vital Signs Date Time Temp Pulse Resp B/P Pulse Ox O2 Delivery O2 Flow Rate FiO2 12/04/16 07:00 98.6 88 20 138/69 90 12/02/16 20:15 2.0 12/02/16 05:25 Nasal Cannula Intake and Output 12/03/16 12/03/16 12/04/16 15:00 23:00 07:00 Intake Total 680 ml 500 ml Balance 680 ml 500 ml Exam Free Text/Dictation Dressing dry Incision clean, dry, and intact without redness or drainage 5/5 Quadriceps, Tibialis Anterior, EHL, Gastroc, Soleus, Peroneals Normal sensation Palpable DT/PT, CR <2 sec No distal edema Results Result Diagram: 12/04/1644412/04/16444 DIMAS WELSH PA-C Dec 04, 2016 08:34
[2016-12-04] MEDS: SALMETEROL/FLUTICASONE 250/50 INHA INH SCH (09:43)
[2016-12-04] MEDS: ASPIRIN (EC) 325 MG TAB PO SCH (09:44)
[2016-12-04] MEDS: PREGABALIN 25 MG CAP PO SCH (09:44)
[2016-12-04] MEDS: DOCUSATE SODIUM 100 MG CAP PO SCH (09:44)
[2016-12-04] MEDS: FINASTERIDE 5 MG TAB PO SCH (09:44)
[2016-12-04] MEDS: CELECOXIB 200 MG CAP PO SCH (09:44)
[2016-12-04] MEDS: TIOTROPIUM 18 MCG CAPSULE INHA DEV INH SCH (09:44)
--- NOTE | 2016-12-04 10:45 | PN ---
Date/Time of Note Date/Time of Note DATE: 12/04/16 TIME: 10:43 Assessment/Plan VTE Prophylaxis VTE Prophylaxis Intervention: other Lines/Catheters IV Catheter Type (from [facility]): Saline Lock Urinary Cath still in place: No Assessment/Plan Chief Complaint/Hosp Course ASSESSMENT AND PLAN: 1. Left hip osteoarthritis. The patient is status post left anterior total hip arthroplasty. Continue postsurgical care. Aspirin for deep venous thrombosis prophylaxis. Continue pain medication. Physical therapy as per orthopedic surgeon. 2. Chronic obstructive pulmonary disease. Continue Symbicort, albuterol and Spiriva. 3. Dyslipidemia. Continue statin. 4. Benign prostatic hypertrophy. Continue finasteride. 5. Anemia. Stable, recommend to be discharged on ferrous sulfate 6. For deep venous thrombosis prophylaxis, on aspirin as per orthopedic surgeon 's recommendation. Patient is medically stable to be discharged home as medical standpoint Follow up with orthopedic surgeon as outpatient Problems: Subjective 24 Hr Interval Summary Free Text/Dictation Patient denies any chest pain or shortness of breath Has been able to ambulate with minimal assist and walker Tolerating oral intake without any difficulty Exam/Review of Systems Vital Signs Vitals Vital Signs Date Time Temp Pulse Resp B/P Pulse Ox O2 Delivery O2 Flow Rate FiO2 12/04/16 07:00 98.6 88 20 138/69 90 12/02/16 20:15 2.0 12/02/16 05:25 Nasal Cannula Intake and Output 12/03/16 12/03/16 12/04/16 15:00 23:00 07:00 Intake Total 680 ml 500 ml Balance 680 ml 500 ml Exam General: The patient is well-developed, Not in acute distress. HEENT: Atraumatic, normocephalic. The pupils are equal and round . Neck: Supple with full range of motion. Chest: Normal expansion of the thorax during inspiration Lungs: Clear to auscultation bilaterally Heart: Normal S1-S2, Regular rhythm and rate. Abdomen: Soft , nontender, nondistended , bowel sounds are present. Extremities: Left hip surgical site is dry and clean, no edema no cyanosis Neurologic: Normal mental status,The patient is awake, alert and oriented . Results Result Diagram: 12/04/16 0445 12/04/16 0445 Results 24 hrs Laboratory Tests Test 12/04/16 04:45 Anion Gap 11 Blood Urea Nitrogen 15 Calcium Level 8.0 L Carbon Dioxide Level 33 H Chloride Level 99 Creatinine 0.77 Glucose Level 113 Hematocrit 27.1 L Hemoglobin 8.7 L Potassium Level 4.1 Sodium Level 139 Medications Medications Current Medications Lactated Ringer's (Lr) 1,000 ml @ 100 mls/hr Q10H IV Last administered on 18:15; Admin Dose 100 MLS/HR; Start 12/01/16 at 07:00 Diazepam (Valium) 5 mg QHS PO ; Start 12/01/16 at 21:00 Finasteride (Proscar) 5 mg DAILY PO Last administered on 12/04/16 09:44; Admin Dose 5 MG; Start 12/02/16 at 09:00 Salmeterol Xinafoate/ Fluticasone (Advair 250/50 Diskus) 1 inh BID INH Last administered on 12/04/16 09:43; Admin Dose 1 INH; Start 12/01/16 at 21:00 Atorvastatin Calcium 5 mg 5 mg DAILY@21 PO Last administered on 12/03/16 21:06 ; Admin Dose 5 MG; Start 12/01/16 at 21:00 Lactated Ringer's (Lr) 1,000 ml @ 125 mls/hr Q8H IV Last administered on 01:55; Admin Dose 125 MLS/HR; Start 12/01/16 at 10:29 Celecoxib (Celebrex) 200 mg DAILY PO Last administered on 12/04/16 09:44; Admin Dose 200 MG; Start 12/02/16 at 09:00 Tramadol HCl (Ultram) 50 mg Q6 PO Last administered on 12/04/16 06:03; Admin Dose 50 MG; Start 12/01/16 at 12:00; Stop 12/04/16 at 11:59 Oxycodone HCl (Roxicodone) 5 mg Q4H PRN PO PAIN LEVEL 1-3 Last administered on 12/02/16 16:47; Admin Dose 5 MG; Start 12/01/16 at 13:00 Oxycodone HCl (Roxicodone) 10 mg Q4H PRN PO PAIN LEVEL 4-7 Last administered on 12/02/16 20:44; Admin Dose 10 MG; Start 12/01/16 at 13:00 Hydromorphone HCl (Dilaudid) 1 mg Q3H PRN IV PAIN LEVEL 8-10; Start 12/01/16 at 13:00 Ondansetron HCl (Zofran Inj) 4 mg Q6H PRN IV NAUSEA AND/OR VOMITING; Start 12/01 at 13:00 Bisacodyl (Dulcolax Supp) 10 mg Q12H PRN [place] CONSTIPATION; Start 12/01/16 at 10: 30 Magnesium Hydroxide (Milk Of Mag) 30 ml BID PRN PO CONSTIPATION; Start 12/01/16 at 10:30 Sodium Biphosphate/ Sodium Phosphate (Fleet Enema) 133 ml DAILY PRN [place] CONSTIPATION; Start 12/01/16 at 10:30 Docusate Sodium (Colace) 100 mg BID PO Last administered on 12/04/16 09:44; Admin Dose 100 MG; Start 12/01/16 at 21:00 Diphenhydramine HCl (Benadryl) 25 mg Q6H PRN PO PRURITUS; Start 12/01/16 at 13: 00 Aspirin (Ecotrin) 325 mg BID PO Last administered on 12/04/16 09:44; Admin Dose 325 MG; Start 12/02/16 at 09:00 Pregabalin (Lyrica) 50 mg BID PO Last administered on 12/04/16 09:44; Admin Dose 50 MG; Start 12/01/16 at 21:00 Pantoprazole (Protonix Tab) 40 mg BID@06,18 PO Last administered on 12/04/16 06:03; Admin Dose 40 MG; Start 12/01/16 at 18:00 Tiotropium [place] (Spiriva) 1 inh DAILY INH Last administered on 12/04/16 09: 44; Admin Dose 1 INH; Start 12/01/16 at 12:00 MARY PEPPER MD Dec 04, 2016 10:45
--- NOTE | 2016-12-04 16:54 | DS ---
DATE OF ADMISSION: 12/01/2016 DATE OF DISCHARGE: 12/04/2016 CONDITION ON DISCHARGE: Stable. ADMITTING DIAGNOSIS: Left hip osteoarthritis. DISCHARGE DIAGNOSIS: Status post left anterior total hip arthroplasty. PROCEDURE PERFORMED: Left anterior total hip arthroplasty. HOSPITAL COURSE: This is an 81-year-old male who was seen in the clinic initially complaining of left hip pain. His x-ray showed advanced osteoarthritis of the left hip joint, and it was thought he would benefit from a left anterior total hip arthroplasty. On 12/01/2016, the patient was admitted and taken to the operating room where he underwent a left anterior total hip arthroplasty. There were no intraoperative complications. The patient tolerated the procedure well. He was taken to the recovery room in stable condition. Pain was well controlled with oral pain medication. He was started on aspirin and SCDs for DVT prophylaxis. He remained hemodynamically stable and neurovascularly intact throughout his hospital stay. On postoperative day 1, he began physical therapy and continued to make good progress. On postoperative day 3, he was deemed clinically stable for discharge. Prior to discharge, the incision was inspected and noted to be clean , dry, and intact. Dressing changes were done prior to the patient going home. LABORATORY ANALYSIS: Hemoglobin of 8.7, hematocrit 27.1. Chemistry panel was within normal limits. DISCHARGE MEDICATIONS: 1. [place] 5/325 mg. 2. Aspirin 325 mg. 3. Tramadol 50 mg. 4. Protonix 40 mg. Additionally, the patient is to resume all of his normal home medications. DISCHARGE INSTRUCTIONS: The patient will be discharged home in stable condition. He is to resume a normal diet. Activity includes weightbearing as tolerated on the surgical lower extremity. He is to begin physical therapy with home health. He will be discharged home with the medications noted above, and he is to resume all of his normal home medications. The patient will call the office or return to the emergency room for any concerns including increased redness, swelling, drainage, fever, or any concerns regarding the operation or site of incision. FOLLOWUP: The patient is to follow up in the office with Dr. Addison on 2016 Dictated By: DIMAS BLAIR for LISA WALLACE/REYNALDO Conf#: [id number] DID#: [id number] [facility] HOSPITALJennifer
[2016-12-04] MEDS ORDERED: NYSTATIN SUSP 5 ML CUP PO SCH (17:00)
== END 2016-12-04 14:25 | disposition home health service (06) | DRG 470 ==
LOC: REC 05:35 → MS1 12:09
PROVIDERS: ADMIT Orthopaedic Surgery; ATTEND Orthopaedic Surgery
PROC: 0SRB04A Replacement of Left Hip Joint with Ceramic on Polyethylene Synthetic Substitute, Uncemented, Open Approach (ICD-10-PCS; principal; 2016-12-01 07:00)
DX: M16.12 Unilateral primary osteoarthritis, left hip (principal); R00.1 Bradycardia, unspecified; J44.9 Chronic obstructive pulmonary disease, unspecified; E78.5 Hyperlipidemia, unspecified; N40.0 Benign prostatic hyperplasia without lower urinary tract symptoms; M19.039 Primary osteoarthritis, unspecified wrist; M19.049 Primary osteoarthritis, unspecified hand; D64.9 Anemia, unspecified; Z79.82 Long term (current) use of aspirin; Z87.891 Personal history of nicotine dependence
CPT/HCPCS: 72170; 73500; 73530; 80048; 81001; 81003; 82728; 83540; 85014; 85018; 86850; 86900; 86901; 86920; 87081; 87086; 88304; 88311; 97110; 97116; 97163; 97166; 97530; Z7610; C1776; C9290; J0131; J0171; J0690; J0697; J0735; J1100; J1885; J2001; J2250; J2274; J2405; J2710; J3010; J3370; J7120; P9045

== ENCOUNTER → 2016-12-11 | Outpatient (CLI) | payer BC ==
[~2016-12-11] MED LIST changes: -ASPI325T4 PO
--- NOTE | 2016-12-11 11:15 | HKNOTE ---
DATE OF SERVICE: 12/11/2016 INTERVAL HISTORY: The patient presents today for followup evaluation on his left hip. He is now 10 days status post left anterior total hip arthroplasty. He is doing well overall. He is doing home health. He denies any significant pain. Denies any fevers, chills. He is taking aspirin twice daily for DVT prophylaxis. He presents today for his first postoperative evaluation. PHYSICAL EXAMINATION: He is alert and oriented x4, in no acute distress. He is walking with a front-wheeled walker. Prineo is in place. There is no erythema or warmth. No pus or drainage noted. The compartments are soft. Homans sign is negative. He is neurovascularly intact distally. IMAGING: X-rays of left hip were obtained today and reviewed by me. They show good anatomic location of the prosthetic hip. No fracture or dislocation identified. ASSESSMENT: Ten days status post left anterior total hip arthroplasty. PLAN: 1. Continue physical therapy with home health. 2. Continue aspirin twice daily for 6 weeks. 3. Prineo removed and Steri-Strips applied today. 4. Follow up in 4 weeks for repeat evaluation. Dictated By: DIMAS BLAIR for LISA WALLACE/REYNALDO Conf#: [id number] DID#: [id number] MTDJennifer
--- NOTE | 2016-12-11 14:44 | RADRPT ---
PROCEDURE: XR AP pelvis/left hip. CLINICAL INDICATION: Hip pain TECHNIQUE: AP pelvis/left lateral hip view performed. COMPARISON: 12/01/2016 FINDINGS: There is a left total hip replacement. There is no evidence of loosening of the prosthesis. There is mild right hip osteoarthrosis. This is associated with joint space narrowing. There is nor mal osseous mineralization. No fractures or osseous lesions are identified. The soft tissues are u nremarkable. IMPRESSION: Left total hip replacement. Mild right hip osteoarthrosis. RPTAT: HGDB .Skyler Thomas MD, Date Time Electronically viewed and signed by .Skyler Thomas MD, on 12/11/2016 14:44 .B/
== END | disposition home or self-care (01) ==
LOC: HKI 09:58
PROVIDERS: ATTEND Orthopaedic Surgery
DX: Z47.1 Aftercare following joint replacement surgery (principal); Z96.642 Presence of left artificial hip joint; Z79.82 Long term (current) use of aspirin
CPT/HCPCS: 73502

== ENCOUNTER → 2017-01-06 | Outpatient (CLI) | payer BC ==
--- NOTE | 2017-01-06 17:47 | RADRPT ---
PROCEDURE: XR Left Hip and pelvis. CLINICAL INDICATION: Left hip pain. Pelvic pain. Postop. TECHNIQUE: Two views. Frontal pelvis and frontal left hip. COMPARISON: 12/11/2016. FINDINGS: There is no fracture or dislocation. The soft tissues are normal. There is a left hip total arthroplasty which appears satisfactory. There are mild degenerative changes of the right hip. There is no lytic or blastic lesion. The upper pelvis is not included on the image. IMPRESSION: 1. Satisfactory postoperative appearance of the left hip. 2. Mild degenerative changes of the right hip. RPTAT: QQ .Abdi Bledsoe MD, Date Time Electronically viewed and signed by .Abdi Bledsoe MD, on 01/06/2017 17:47 .R/
== END | disposition home or self-care (01) ==
LOC: HKI 09:14
PROVIDERS: ATTEND Orthopaedic Surgery
DX: Z47.1 Aftercare following joint replacement surgery (principal); Z16.12 Extended spectrum beta lactamase (ESBL) resistance; Z96.642 Presence of left artificial hip joint
CPT/HCPCS: 73502

== ENCOUNTER → 2017-03-10 | Outpatient (CLI) | payer BC ==
[~2017-03-10] MED LIST changes: -PRA20 PO; +PRAV20TA2 PO
--- NOTE | 2017-03-10 09:19 | RADRPT ---
PROCEDURE: XR Left Hip and pelvis. CLINICAL INDICATION: Left hip pain. Pelvic pain. Postop. TECHNIQUE: Three views. Frontal pelvis. Frontal and lateral left hip. COMPARISON: 01/06/2017. FINDINGS: There is no fracture or dislocation. The soft tissues are normal. There is a left hip total arthroplasty which appears satisfactory. There are mild degenerative changes of the right hip, similar to the prior study. There is no lytic or blastic lesion. There are degenerative changes of the lower lumbar spine. IMPRESSION: 1. Satisfactory postoperative appearance of the left hip. 2. 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 RPTAT: QQ .Abdi Bledsoe MD, MD Date Time Electronically viewed and signed by .Abdi Bledsoe MD, MD on 03/10/2017 09:19 .R/
== END | disposition home or self-care (01) ==
LOC: HKI 08:43
PROVIDERS: ATTEND Orthopaedic Surgery
DX: Z09 Encounter for follow-up examination after completed treatment for conditions other than malignant neoplasm (principal); Z96.652 Presence of left artificial knee joint; J44.9 Chronic obstructive pulmonary disease, unspecified; E78.5 Hyperlipidemia, unspecified
CPT/HCPCS: 73502; G0463

== ENCOUNTER → 2017-05-28 | Outpatient (CLI) | payer BC ==
--- NOTE | 2017-05-28 09:50 | RADRPT ---
PROCEDURE: XR Left Hip and pelvis. CLINICAL INDICATION: Left hip pain. Pelvic pain. Postop. TECHNIQUE: Three views. Frontal pelvis. Frontal and lateral left hip. COMPARISON: 03/10/2017. FINDINGS: There is no fracture or dislocation. The soft tissues are normal. There is a left hip total arthroplasty which appears satisfactory. There are mild degenerative changes of the right hip with osteophytes noted. There is no lytic or blastic lesion. There are degenerative changes of the lower lumbar spine. IMPRESSION: 1. Satisfactory postoperative appearance of the left hip. 2. 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 3. No change from 03/10/2017. RPTAT: QQ .Abdi Bledsoe MD, MD Date Time Electronically viewed and signed by .Abdi Bledsoe MD, on 05/28/2017 09:50 .R/
== END | disposition home or self-care (01) ==
LOC: HKI 09:05
PROVIDERS: ATTEND Orthopaedic Surgery
DX: Z47.89 Encounter for other orthopedic aftercare (principal); Z96.642 Presence of left artificial hip joint
CPT/HCPCS: 73502; G0463